=== PATIENT | female | born 1965 | race Caucasian/White ===

== ENCOUNTER → 2018-06-04 | Outpatient (CLI) | payer MEDICARE, OTHER ==
[~2018-06-04] MED LIST: ACETAMINOPHEN325 M1 PO; ASPIRIN325 PO; CELEBREX 200 M200 MG PO; CIPROFLOXACIN500 M3 PO; KEFLEX500 MG PO; LAMICTAL XR200 MG PO; LEVOXYL50 MCG PO; LEVOXYL75 MCG PO; NABUMETONE 500500 M1 PO; NEXIUM40 MG PO; NORCO 5-325 TA1 EACH PO; PRISTIQ50 MG PO; SEROQUEL 25 MG25 MG PO; SEROQUEL XR150 M1 PO; SIMVASTATIN40 MG PO; TOPROL XL50 MG PO
== END ==
LOC: M.RAD 06-01 15:06 → M.ULTRA 09:37
DX: N85.8 Other specified noninflammatory disorders of uterus (principal); I10 Essential (primary) hypertension; E03.9 Hypothyroidism, unspecified; K21.9 Gastro-esophageal reflux disease without esophagitis; N83.9 Noninflammatory disorder of ovary, fallopian tube and broad ligament, unspecified

== ENCOUNTER → 2019-09-13 | Outpatient (CLI) | payer MEDICARE, OTHER | LOC: M.RAD 09:08 | DX: S22.32XA Fracture of one rib, left side, initial encounter for closed fracture (principal); S29.9XXA Unspecified injury of thorax, initial encounter; X58.XXXA Exposure to other specified factors, initial encounter; Y93.89 Activity, other specified; Y92.89 Other specified places as the place of occurrence of the external cause; Y99.8 Other external cause status ==

== ENCOUNTER → 2019-11-16 | Outpatient (CLI) | payer MEDICARE, OTHER | LOC: M.RAD 13:36 | DX: Z12.31 Encounter for screening mammogram for malignant neoplasm of breast (principal) ==

== ENCOUNTER → 2019-11-29 | Outpatient (CLI) | payer MEDICARE, OTHER | LOC: M.RAD 13:23 | DX: M47.812 Spondylosis without myelopathy or radiculopathy, cervical region (principal); M51.36 Other intervertebral disc degeneration, lumbar region; M48.02 Spinal stenosis, cervical region; M25.78 Osteophyte, vertebrae; M99.02 Segmental and somatic dysfunction of thoracic region ==

== ENCOUNTER 2020-05-26 23:12 | Emergency (ER) | payer MEDICARE, OTHER ==
[~2020-05-26] VITALS: Ht 152.4 cm; Wt 48.5 kg
[2020-05-26] MEDS ORDERED: NORVASC5 M1 PO (23:24)
[2020-05-26] MEDS ORDERED: PROTONIX 20 MG20 M1 PO (23:27)
[2020-05-26] MEDS ORDERED: ZOCOR 20 MG TAB20 M1 PO (23:28)
[2020-05-26] MEDS ORDERED: CELEBREX 200 M200 MG PO (23:28)
[2020-05-26] MEDS ORDERED: LEVOXYL75 MCG PO (23:28)
[2020-05-26] MEDS ORDERED: REVIA 50 MG TAB50 MG PO (23:29)
[2020-05-26] MEDS ORDERED: CALCIUM500 MG PO (23:30)
[2020-05-26] MEDS ORDERED: SUPER THERAVIT1 EACH PO (23:30)
[2020-05-26] MEDS ORDERED: VITAMIN D325 MC5 PO (23:31)
[2020-05-26] MEDS ORDERED: VITAMIN C500 M2 PO (23:31)
[2020-05-27] LABS: ABSOLUTE BASOPHILS 0.1 thou/uL (0.0-0.2); ABSOLUTE EOSINOPHILS 0.2 thou/uL (0.0-0.7); ABSOLUTE LYMPHOCYTES 5.6 thou/uL (0.8-5.3); BASOPHILS 0.6 %; EOSINOPHILS 1.8 %; HEMATOCRIT 34.7 % (37.0-47.0); HEMOGLOBIN 11.9 gm/dL (12.0-15.0); LYMPHOCYTES 51.6 %; MCHC 34.2 g/dL (28.0-37.0); MCV 90.8 fL (80.0-100.0); MONOCYTES 9.2 %; MPV 7.3 fl. (7.2-11.1); NUCLEATED RBCS 0 /100WBC; PLATELET COUNT* 492 thou/uL (150-400); POLYS 36.8 %; RBC 3.82 mil/uL (4.20-5.00); RDW-CV 14.5 % (10.5-14.5); WBC 10.9 thou/uL (4.0-11.0)
[2020-05-27 00:07] LABS: ALBUMIN 4.3 g/dL (3.4-5.0); CALCIUM 8.8 mg/dL (8.5-10.1); CREATININE 1.1 mg/dL (0.6-1.3); TOTAL BILIRUBIN 0.4 mg/dL (<0.1-1.0)
[2020-05-27 00:12] LABS: POTASSIUM 2.3 mmol/L (3.5-5.1)
[2020-05-27] MEDS ORDERED: ZOFRAN ODT4 MG PO (06:08)
[2020-05-27 06:16] VITALS: BP 102/54
== END 2020-05-27 06:17 | disposition home or self-care (01) ==
LOC: M.ERS 23:12
PROVIDERS: Emergency Medicine
DX: E87.6 Hypokalemia (principal); R11.2 Nausea with vomiting, unspecified; K21.9 Gastro-esophageal reflux disease without esophagitis; I10 Essential (primary) hypertension; E03.9 Hypothyroidism, unspecified; Z88.8 Allergy status to other drugs, medicaments and biological substances

== ENCOUNTER 2020-06-18 23:40 | Emergency (ER) | payer MEDICARE, OTHER ==
[~2020-06-18] VITALS: Ht 154.9 cm; Wt 47.2 kg
[~2020-06-18 23:40] MED LIST changes: +CALCIUM500 MG PO; +NORVASC5 M1 PO; +PROTONIX 20 MG20 M1 PO; +REVIA 50 MG TAB50 MG PO; +SUPER THERAVIT1 EACH PO; +VITAMIN C500 M2 PO; +VITAMIN D325 MC5 PO; +ZOCOR 20 MG TAB20 M1 PO; +ZOFRAN ODT4 MG PO
[2020-06-19 00:16] LABS: ABSOLUTE EOSINOPHILS 0.1 thou/uL (0.0-0.7); ABSOLUTE LYMPHOCYTES 3.5 thou/uL (0.8-5.3); ABSOLUTE MONOCYTES 0.7 thou/uL (0.0-1.2); ABSOLUTE NEUTROPHILS 4.3 thou/uL (1.6-8.1); BASOPHILS 0.5 %; EOSINOPHILS 1.2 %; HEMATOCRIT 34.9 % (37.0-47.0); HEMOGLOBIN 12.1 gm/dL (12.0-15.0); MCHC 34.7 g/dL (28.0-37.0); MCV 92.2 fL (80.0-100.0); MONOCYTES 7.8 %; NUCLEATED RBCS 0 /100WBC; PLATELET COUNT* 394 thou/uL (150-400); POLYS 49.5 %; RBC 3.79 mil/uL (4.20-5.00); RDW-CV 13.8 % (10.5-14.5); WBC 8.7 thou/uL (4.0-11.0)
[2020-06-19 00:26] LABS: APTT 25.7 Seconds (25.0-31.3); CALCIUM 8.9 mg/dL (8.5-10.1); CREATININE 1.1 mg/dL (0.6-1.3); POTASSIUM 3.3 mmol/L (3.5-5.1)
[2020-06-19 00:37] LABS: ALBUMIN 4.2 g/dL (3.4-5.0); CK-MB MASS 2.6 ng/mL (<0.5-3.6); MAGNESIUM 1.9 mg/dL (1.8-2.4); TOTAL BILIRUBIN 0.3 mg/dL (<0.1-1.0); TOTAL PROTEIN 6.6 g/dL (6.4-8.2)
[2020-06-19 01:24] VITALS: BP 144/63
--- NOTE | 2020-06-19 09:41 | EKG ---
[place] [address] ELECTROCARDIOGRAM REPORT Name: TAIWO CROFT Room: [facility]#: [id number] Admission: 06/18/20 Attend Phys: Discharge: 06/19/20 Date of : 63 Date of Service: 06/18/20 2357 Report #: [id number] THIS REPORT FOR: //name// [facility] ED Test Date: 2020-06-18 Test Time: 23:57:49 Pat Name: TAIWO CROFT Department: Room: Gender: Carbonizer: JANET : 1965 Requested By: Godwin Chilel Order Number: [id number] MD: Carlos Magana Measurements Intervals [place] Rate: 101 P: 51 [place]: 177 QRS: -19 QRSD: 91 T: 58 QT: 366 QTc: 475 Interpretive Statements Sinus tachycardia RSR' in V1 or V2, probably normal variant Artifact in lead(s) II,III,aVF,V1,V2,V3,V4,V5,V6 Compared to ECG 02/11/2008 08:34:52 Sinus bradycardia no longer present Electronically Signed On 06-19-2020 9:41:43 CDT by Carlos Magana [email or web address] <ELECTRONICALLY SIGNED> By: Carlos Magana MD, FACC 06/19/20 0941 2357 Carlos Magana MD, FACC /EPI
== END 2020-06-19 01:24 | disposition home or self-care (01) ==
LOC: M.ERS 23:40
PROVIDERS: Family Medicine
DX: F41.9 Anxiety disorder, unspecified (principal); R06.02 Shortness of breath; R42 Dizziness and giddiness; R11.0 Nausea; K21.9 Gastro-esophageal reflux disease without esophagitis; E03.9 Hypothyroidism, unspecified; I10 Essential (primary) hypertension; Z79.899 Other long term (current) drug therapy; Z88.8 Allergy status to other drugs, medicaments and biological substances

== ENCOUNTER 2021-08-02 11:24 | Emergency (ER) | payer MEDICARE, OTHER ==
[~2021-08-02] VITALS: Ht 157.5 cm; Wt 41.7 kg
[~2021-08-02 11:24] MED LIST changes: -SEROQUEL XR150 M1 PO; +SEROQUEL XR400 MG PO
[2021-08-02] MEDS ORDERED: BUSPIRONE HCL10 MG PO (11:49)
[2021-08-02] MEDS ORDERED: PROLIA60 MG/1 ML SUBQ (11:50)
[2021-08-02] MEDS ORDERED: VITAMIN D325 MC3 PO (11:51)
[2021-08-02 12:06] LABS: HEMOGLOBIN 14.3 gm/dL (12.0-15.0); MCH 30.9 pg (26.0-34.0); MCHC 33.3 g/dL (28.0-37.0); RBC 4.62 mil/uL (4.20-5.00); RDW-CV 13.7 % (10.5-14.5); WBC 9.2 thou/uL (4.0-11.0)
[2021-08-02 12:16] LABS: CALCIUM 8.5 mg/dL (8.5-10.1); CREATININE 0.9 mg/dL (0.6-1.3)
[2021-08-02 12:18] LABS: POTASSIUM 2.8 mmol/L (3.5-5.1)
[2021-08-02 12:20] LABS: ALBUMIN 4.6 g/dL (3.4-5.0); MAGNESIUM 2.4 mg/dL (1.8-2.4); TOTAL BILIRUBIN 0.4 mg/dL (<0.1-1.0); TOTAL PROTEIN 7.4 g/dL (6.4-8.2)
--- NOTE | 2021-08-02 12:24 | EKG ---
[place] [address] ELECTROCARDIOGRAM REPORT Name: TAIWO CROFT Room: [facility]..#: [id number] Admission: Attend Phys: Discharge: Date of : 63 Date of Service: 08/02/21 1201 Report #: [id number] THIS REPORT FOR: //name// [facility] ED Test Date: 2021-08-02 Test Time: 12:01:58 Pat Name: TAIWO CROFT Department: Room: Gender: F Manager Of Broadcast Content: LAURA : 1965 Requested By: Yuri Singer Order Number: [id number] MD: Carlos Magana Measurements Intervals [place] Rate: 84 P: 82 [place]: 164 QRS: 35 QRSD: 84 T: -83 QT: 464 QTc: 549 Interpretive Statements Sinus rhythm Biatrial enlargement Nonspecific T abnormalities, diffuse leads Prolonged QT interval Baseline wander in lead(s) III Compared to ECG 06/18/2020 23:57:49 T-wave abnormality now present Prolonged QT interval now present Sinus tachycardia no longer present Electronically Signed On 08-02-2021 12:24:03 [employer] APPRENTICE by Carlos Magana [email or web address] <ELECTRONICALLY SIGNED> By: Carlos Magana MD, [facility] 08/02/21 1224 1201 1201 Carlos Magana MD, [facility] /EPI
[2021-08-02 15:09] LABS: CALCIUM 7.7 mg/dL (8.5-10.1); CREATININE 0.7 mg/dL (0.6-1.3); POTASSIUM 4.3 mmol/L (3.5-5.1)
[2021-08-02] MEDS ORDERED: ZOFRAN ODT4 MG DISSOLVE (15:18)
[2021-08-02 15:35] VITALS: BP 139/48
--- NOTE | 2021-08-02 16:17 | EKG ---
[place] [address] ELECTROCARDIOGRAM REPORT Name: TAIWO CROFT [facility] [id number] Admission: 08/02/21 Attend Phys: Discharge: 08/02/21 Date of : 63 Date of Service: 08/02/21 1449 Report #: [id number] THIS REPORT FOR: //name// [facility] ED Test Date: 2021-08-02 Test Time: 14:49:45 Pat Name: TAIWO CROFT Department: Room: Gender: Automotive Service Assistant: LAURA : 1965 Requested By: Yuri Singer Order Number: [id number] MD: Carlos Magana Measurements Intervals [place] Rate: 82 P: 69 [place]: 176 QRS: -12 QRSD: 114 T: 31 QT: 403 QTc: 471 Interpretive Statements Sinus rhythm artifact noted nonspecific t wave changes septal infarct, age indeterminate Compared to ECG 08/02/2021 12:01:58 Prolonged QT interval no longer present Electronically Signed On 08-02-2021 16:16:56 [employer] by Carlos Magana [email or web address] <ELECTRONICALLY SIGNED> By: Carlos Magana MD, FACC 08/02/21 1616 1449 1449 Carlos Magana MD, [facility] /EPI
== END 2021-08-02 15:36 | disposition home or self-care (01) ==
LOC: M.ERS 11:24
PROVIDERS: Emergency Medicine Emergency Medical Services
DX: R11.2 Nausea with vomiting, unspecified (principal); E86.0 Dehydration; K21.9 Gastro-esophageal reflux disease without esophagitis; F31.9 Bipolar disorder, unspecified; E03.9 Hypothyroidism, unspecified; I10 Essential (primary) hypertension; Z98.890 Other specified postprocedural states; Z79.899 Other long term (current) drug therapy; Z88.8 Allergy status to other drugs, medicaments and biological substances